=== PATIENT | male | born 1970 | race Caucasian/White ===

== ENCOUNTER 2020-11-15 17:34 | Day surgery (SDC) | payer BC ==
[2020-11-15] MEDS ORDERED: Sodium Chloride 0.9(Preservative Free) 10 ML IJ ONE (17:35)
[2020-11-15] MEDS ORDERED: Xylocaine 1% Vial 30 ML PF IJ ONE (17:35)
[2020-11-15] MEDS ORDERED: Depo-Medrol 40 MG/ML IM ONE (17:35)
--- NOTE | 2020-11-15 20:58 | XRAY ---
Indication: Right L3-S1 transforaminal RACHAEL. Intraoperative fluoroscopy provided for 38 seconds. 2 digital spot image submitted for interpretation demonstrates posterior needle tips projecting over the expected right L4 and L5 nerve roots. Small amount of contrast injected for needle tip placement. Correlate with intraoperative findings/report.
--- NOTE | 2020-11-16 08:44 | XRAY ---
38 seconds of fluoroscopy was used in surgery for a right L3-S1 transforaminal RACHAEL.
== END 2020-11-15 19:30 | disposition home or self-care (01) ==
LOC: SDC-PAIN 17:34
PROVIDERS: ATTEND Psychiatry & Neurology Pain Medicine
DX: M54.16 Radiculopathy, lumbar region (principal); E11.9 Type 2 diabetes mellitus without complications; Z79.899 Other long term (current) drug therapy
CPT/HCPCS: 64483; 64484; 72100; 77003; 82947; J1030; J2001; Q9966

== ENCOUNTER 2021-01-03 16:29 | Day surgery (SDC) | payer BC ==
[2021-01-03] MEDS ORDERED: Depo-Medrol 40 MG/ML IM ONE (16:30)
[2021-01-03] MEDS ORDERED: Sodium Chloride 0.9(Preservative Free) 10 ML IJ ONE (16:30)
[2021-01-03] MEDS ORDERED: Xylocaine 1% Vial 30 ML PF IJ ONE (16:30)
--- NOTE | 2021-01-03 19:06 | XRAY ---
Indication: Left L4-S1 transforaminal RACHAEL. Intraoperative fluoroscopy provided for 1 minute 6 seconds. 7 digital spot images submitted for interpretation demonstrates posterior needle tips projecting over the expected left L4 and L5 nerve roots. Small amount of contrast injected for needle tip placement. Correlate with intraoperative findings/report.
--- NOTE | 2021-01-04 08:40 | XRAY ---
1 minute and 6 seconds fluoroscopy time in surgery for left L4-S1 transforaminal RACHAEL.
== END 2021-01-03 18:11 | disposition home or self-care (01) ==
LOC: SDC-PAIN 16:29
PROVIDERS: ATTEND Psychiatry & Neurology Pain Medicine
DX: M54.16 Radiculopathy, lumbar region (principal); E11.9 Type 2 diabetes mellitus without complications; Z79.899 Other long term (current) drug therapy
CPT/HCPCS: 64483; 64484; 72100; 77003; 82947; J1030; J2001; Q9966

== ENCOUNTER 2021-03-02 07:11 | Day surgery (SDC) | payer BC ==
[2021-03-02] MEDS ORDERED: Depo-Medrol 40 MG/ML IM ONE (07:12)
[2021-03-02] MEDS ORDERED: Sodium Chloride 0.9% 10 ML FLUSH Syringe IJ ONE (07:12)
[2021-03-02] MEDS ORDERED: Xylocaine 1% Vial 30 ML PF IJ ONE (07:12)
--- NOTE | 2021-03-02 10:53 | XRAY ---
Indication: Caudal RACHAEL. Intraoperative fluoroscopy provided for 26 seconds. 2 digital spot image submitted for interpretation demonstrates caudal posterior needle tip projecting mid sacrum. Small amount of contrast injected for needle tip placement. Correlate with intraoperative findings/report.
--- NOTE | 2021-03-02 12:32 | XRAY ---
26 seconds fluoroscopy time in surgery for caudal RACHAEL.
== END 2021-03-02 08:32 | disposition home or self-care (01) ==
LOC: SDC-PAIN 07:11
PROVIDERS: ATTEND Psychiatry & Neurology Pain Medicine
DX: M54.16 Radiculopathy, lumbar region (principal); I10 Essential (primary) hypertension; E11.9 Type 2 diabetes mellitus without complications; Z79.899 Other long term (current) drug therapy
CPT/HCPCS: 62323; 72020; 77003; 82947; J1030; J2001; Q9966

== ENCOUNTER → 2021-06-27 | Day surgery (SDC) | payer BC | LOC: SDC-PAIN 07:50 | PROVIDERS: ATTEND Psychiatry & Neurology Pain Medicine | DX: Z53.8 Procedure and treatment not carried out for other reasons (principal); R73.9 Hyperglycemia, unspecified | CPT/HCPCS: 82947 ==

== ENCOUNTER 2021-07-04 07:12 | Day surgery (SDC) | payer BC ==
[2021-07-04] MEDS ORDERED: Depo-Medrol 40 MG/ML IM ONE (07:13)
[2021-07-04] MEDS ORDERED: Sodium Chloride 0.9(Preservative Free) 10 ML IJ ONE (07:13)
[2021-07-04] MEDS ORDERED: Xylocaine 1% Vial 30 ML PF IJ ONE (07:13)
--- NOTE | 2021-07-04 10:09 | XRAY ---
Indication: Right L4-S1 transforaminal RACHAEL. Intraoperative fluoroscopy provided for 55 seconds. 4 digital spot image submitted for interpretation demonstrate posterior needle tips projecting over the expected right L4 and L5 nerve roots. Small amount of contrast injected for needle tip placement. Correlate with intraoperative findings/report.
--- NOTE | 2021-07-04 10:11 | XRAY ---
55 seconds fluoroscopy time in surgery for L4-S1 transforaminal RACHAEL.
== END 2021-07-04 08:57 | disposition home or self-care (01) ==
LOC: SDC-PAIN 07:12
PROVIDERS: ATTEND Psychiatry & Neurology Pain Medicine
DX: M54.16 Radiculopathy, lumbar region (principal); E11.9 Type 2 diabetes mellitus without complications; Z79.899 Other long term (current) drug therapy
CPT/HCPCS: 64483; 64484; 72100; 77003; 82947; J1030; J2001; Q9966

== ENCOUNTER 2021-09-19 14:37 | Day surgery (SDC) | payer BC ==
[2021-09-19] MEDS ORDERED: Xylocaine 1% Vial 30 ML PF IJ ONE (14:38)
[2021-09-19] MEDS ORDERED: Sodium Chloride 0.9(Preservative Free) 10 ML IJ ONE (14:38)
[2021-09-19] MEDS ORDERED: Depo-Medrol 40 MG/ML IM ONE (14:38)
--- NOTE | 2021-09-19 17:12 | XRAY ---
Indication: Left L4-S1 transforaminal RACHAEL. Intraoperative fluoroscopy provided for 53 seconds. 6 digital spot images submitted for interpretation demonstrates posterior needle tips projecting over the expected left L4 and L5 nerve roots. Small amount of contrast injected for needle tip placement. Correlate with intraoperative findings/report.
--- NOTE | 2021-09-20 09:13 | XRAY ---
53 seconds fluoroscopy time in surgery for left L4-S1 transforaminal RACHAEL.
== END 2021-09-19 16:37 | disposition home or self-care (01) ==
LOC: SDC-PAIN 14:37
PROVIDERS: ATTEND Psychiatry & Neurology Pain Medicine
DX: M54.16 Radiculopathy, lumbar region (principal); E11.9 Type 2 diabetes mellitus without complications; Z79.899 Other long term (current) drug therapy
CPT/HCPCS: 64483; 64484; 72100; 77003; 82947; J1030; J2001; Q9966

== ENCOUNTER 2022-01-02 11:55 | Day surgery (SDC) | payer BC ==
[2022-01-02] MEDS ORDERED: Depo-Medrol 40 MG/ML IM ONE (11:56)
[2022-01-02] MEDS ORDERED: Sodium Chloride 0.9(Preservative Free) 10 ML IJ ONE (11:56)
[2022-01-02] MEDS ORDERED: LIDOCAINE HCL 1% 50 MG/5 ML VL PF IJ ONE (11:56)
--- NOTE | 2022-01-02 18:13 | XRAY ---
Indication: Caudal RACHAEL. Intraoperative fluoroscopy provided for 24 seconds. 2 digital spot image submitted for interpretation demonstrates caudal needle tip projecting mid sacrum. Small amount of contrast injected for needle tip placement. Correlate with intraoperative findings/report.
--- NOTE | 2022-01-02 18:34 | XRAY ---
24 seconds of fluoroscopy was used in surgery for a caudal RACHAEL.
== END 2022-01-02 13:45 | disposition home or self-care (01) ==
LOC: SDC-PAIN 11:55
PROVIDERS: ATTEND Psychiatry & Neurology Pain Medicine
DX: M54.16 Radiculopathy, lumbar region (principal); E11.9 Type 2 diabetes mellitus without complications; Z79.899 Other long term (current) drug therapy
CPT/HCPCS: 62323; 72220; 77002; 82947; J1030; J2001; Q9966

== ENCOUNTER 2022-02-27 11:44 | Day surgery (SDC) | payer BC ==
[2022-02-27] MEDS ORDERED: Sodium Chloride 0.9(Preservative Free) 10 ML IJ ONE (11:45)
[2022-02-27] MEDS ORDERED: Xylocaine 1% Vial 30 ML PF IJ ONE (11:45)
[2022-02-27] MEDS ORDERED: Depo-Medrol 40 MG/ML IM ONE (11:45)
--- NOTE | 2022-02-27 16:33 | XRAY ---
Indication: Left L4-S1 transforaminal RACHAEL. Intraoperative fluoroscopy provided for 43 seconds. 7 digital spot image submitted for interpretation demonstrates posterior needle tips projecting over the expected left L4 and L5 nerve roots. Small amount of contrast injected for needle tip placement. Correlate with intraoperative findings/report.
--- NOTE | 2022-02-27 16:43 | XRAY ---
43 seconds of fluoroscopy was used in surgery for a left L4-S1 transforaminal RACHAEL.
== END 2022-02-27 14:56 | disposition home or self-care (01) ==
LOC: SDC-PAIN 11:44
PROVIDERS: ATTEND Psychiatry & Neurology Pain Medicine
DX: M54.16 Radiculopathy, lumbar region (principal); E11.9 Type 2 diabetes mellitus without complications; Z79.899 Other long term (current) drug therapy
CPT/HCPCS: 64483; 64484; 72100; 77003; 82947; J1030; J2001; Q9966